=== PATIENT | female | born 1955 | race Caucasian/White ===

== ENCOUNTER 2017-09-14 07:04 | Emergency (ER) | payer BC, OTHER ==
[~2017-09-14] VITALS: Ht 162.6 cm; Wt 66.7 kg
[2017-09-14] MEDS ORDERED: NAPROSYN500 MG PO (08:31)
[2017-09-14] MEDS ORDERED: VALIUM2 MG PO (08:31)
[2017-09-14 08:45] VITALS: BP 131/88
== END 2017-09-14 08:46 | disposition home or self-care (01) ==
LOC: ER 07:04
DX: M54.12 Radiculopathy, cervical region (principal); M62.830 Muscle spasm of back; K21.9 Gastro-esophageal reflux disease without esophagitis; F32.9 Major depressive disorder, single episode, unspecified; F41.9 Anxiety disorder, unspecified; J45.909 Unspecified asthma, uncomplicated; F10.99 Alcohol use, unspecified with unspecified alcohol-induced disorder; F17.210 Nicotine dependence, cigarettes, uncomplicated; Z91.09 Other allergy status, other than to drugs and biological substances

== ENCOUNTER 2018-11-14 02:12 | Emergency (ER) | payer BC, OTHER ==
[~2018-11-14] VITALS: Ht 162.6 cm; Wt 68.0 kg
[~2018-11-14 02:12] MED LIST: NAPROSYN500 MG PO; VALIUM2 MG PO
[2018-11-14] MEDS ORDERED: IBUPROFEN 200200 M1 PO (02:33)
[2018-11-14] MEDS ORDERED: TYLENOL EXTRA500 MG PO (02:34)
[2018-11-14 03:19] LABS: ABSOLUTE NEUTROPHILS 2.9 thou/uL (1.4-8.2); BASOPHILS 0.6 % (0.0-2.0); EOSINOPHILS 5.9 % (0.0-3.0); HEMATOCRIT 34.7 % (37.0-47.0); HEMOGLOBIN 11.4 gm/dL (12.0-15.0); LYMPHOCYTES 33.2 % (24.0-44.0); MCH 27.9 pg (26.0-34.0); MCHC 32.9 g/dL (28.0-37.0); MCV 84.6 fL (80.0-100.0); MONOCYTES 10.8 % (1.0-8.0); PLATELET COUNT 360 thou/uL (150-400); POLYS 49.5 % (36.0-66.0); RDW 14.8 % (10.5-14.5); WBC 5.9 thou/uL (4.0-11.0)
[2018-11-14 03:23] LABS: CALCIUM 8.1 mg/dL (8.5-10.1); CREATININE 0.8 mg/dL (0.6-1.0); POTASSIUM 3.5 mmol/L (3.5-5.1)
[2018-11-14] MEDS ORDERED: PREDNISONE 20 M20 MG PO (03:50)
[2018-11-14] MEDS ORDERED: PREDNISONE 5 MG5 M1 PO (04:08)
[2018-11-14] MEDS ORDERED: NORCO 5-325 TA1 EACH PO (04:08)
[2018-11-14 04:35] VITALS: BP 133/74
== END 2018-11-14 04:36 | disposition home or self-care (01) ==
LOC: ER 02:12
PROVIDERS: Student in an Organized Health Care Education/Training Program
DX: M79.662 Pain in left lower leg (principal); K21.9 Gastro-esophageal reflux disease without esophagitis; F32.9 Major depressive disorder, single episode, unspecified; F41.9 Anxiety disorder, unspecified; K52.9 Noninfective gastroenteritis and colitis, unspecified; J45.909 Unspecified asthma, uncomplicated; F17.210 Nicotine dependence, cigarettes, uncomplicated; Z88.2 Allergy status to sulfonamides; Z88.8 Allergy status to other drugs, medicaments and biological substances; Z91.09 Other allergy status, other than to drugs and biological substances

== ENCOUNTER 2019-02-23 16:18 | Emergency (ER) | payer BC, OTHER ==
[~2019-02-23] VITALS: Ht 162.6 cm; Wt 70.3 kg
[~2019-02-23 16:18] MED LIST changes: +IBUPROFEN 200200 M1 PO; +NORCO 5-325 TA1 EACH PO; +PREDNISONE 20 M20 MG PO; +PREDNISONE 5 MG5 M1 PO; +TYLENOL EXTRA500 MG PO
[2019-02-23 16:49] LABS: ABSOLUTE NEUTROPHILS 3.2 thou/uL (1.4-8.2); BASOPHILS 1.2 % (0.0-2.0); EOSINOPHILS 7.8 % (0.0-3.0); HEMOGLOBIN 13.7 gm/dL (12.0-15.0); LYMPHOCYTES 34.3 % (24.0-44.0); MCHC 33.5 g/dL (28.0-37.0); MCV 83.6 fL (80.0-100.0); MONOCYTES 9.1 % (1.0-8.0); PLATELET COUNT 373 thou/uL (150-400); POLYS 47.6 % (36.0-66.0); RDW 14.6 % (10.5-14.5); WBC 6.6 thou/uL (4.0-11.0)
[2019-02-23 16:57] LABS: ANION GAP 11 mmol/L (7-16); BUN 15 mg/dL (7-18); CALCIUM 9.4 mg/dL (8.5-10.1); CHLORIDE 105 mmol/L (98-107); CO2 22 mmol/L (21-32); GLUCOSE 117 mg/dL (74-106); POTASSIUM 3.7 mmol/L (3.5-5.1); SODIUM 138 mmol/L (136-145)
[2019-02-23 17:05] LABS: TROPONIN-I <0.06 ng/mL (<0.06)
[2019-02-23 18:29] VITALS: BP 124/76
--- NOTE | 2019-02-24 16:52 | EKG ---
[address] [address] ELECTROCARDIOGRAM REPORT Name: MILTON HINTON Room #: [facility]#: [id number] ������������������ Admission: 02/23/19 ������������������ Attend Phys: Discharge: 02/23/19 ������������������ Date of : 55 Report #: [id number] ����������������������������������������������������������������� [id number] THIS REPORT FOR: //name// [facility] ED Test Date: 2019-02-23 Test Time: 16:27:06 Pat Name: MILTON HINTON Department: Room: Gender: F [employer] Operator: carlo : 1955 Requested By: Josephine Guerra Order Number: [id number] MD: Malcolm Solis Measurements Intervals [place] Rate: 91 P: 57 [place]: 156 QRS: 13 QRSD: 89 T: 39 QT: 383 QTc: 472 Interpretive Statements Sinus rhythm Borderline low voltage, extremity leads Abnormal inferior Q waves Baseline wander in lead(s) V6 No previous ECG available for comparison Electronically Signed On 02-24-2019 16:51:47 CDT by Malcolm Solis [email or web address] ��������������������������������������������� <ELECTRONICALLY SIGNED> ���������������������������������������� By: Malcolm Solis MD ��������������������������������������������� 02/24/19 1651 [id number] 162 Malcolm Solis MD /[email or web address]
== END 2019-02-23 18:29 | disposition home or self-care (01) ==
LOC: ER 16:18
PROVIDERS: Student in an Organized Health Care Education/Training Program
DX: R07.89 Other chest pain (principal); K21.9 Gastro-esophageal reflux disease without esophagitis; J45.909 Unspecified asthma, uncomplicated; F17.210 Nicotine dependence, cigarettes, uncomplicated; Z88.2 Allergy status to sulfonamides; Z88.8 Allergy status to other drugs, medicaments and biological substances; Z91.09 Other allergy status, other than to drugs and biological substances

== ENCOUNTER → 2020-07-13 | Outpatient (CLI) | payer BC, OTHER | LOC: LAB 11:01 | PROVIDERS: ATTEND Anesthesiology | DX: Z20.828 Contact with and (suspected) exposure to other viral communicable diseases (principal) ==